=== PATIENT | female | born 1985 | race Caucasian/White ===

== ENCOUNTER → 2020-10-15 | Outpatient (CLI) | payer MEDICAID ==
--- NOTE | 2020-10-16 06:49 | US ---
EXAMINATION TYPE: US pelvis complete transvag DATE OF EXAM: 10/15/2020 COMPARISON: NONE CLINICAL HISTORY: N92.1 Mennorhagia irregular cycle. Irregular menses. Unable to go per pat ient. TECHNIQUE: Transvaginal (TV) and Transabdominal (TA) . Transabdominal sonographic images of the pel vis were acquired. Transvaginal sonographic images were medically necessary to better assess the fol lowing anatomy: Endometrium Date of LMP: 10/06/2020, G0 EXAM MEASUREMENTS: Uterus: 9.9 x 4.9 x 4.6 cm Endometrial Stripe: 1.9 cm Right Ovary: 3.1 x 2.2 x 2.1 cm Left Ovary: 2.8 x 2.2 x 2.0 cm 1. Uterus: Anteverted wnl 2. Endometrium: compacted with multiple echogenic foci with shadowing 3. Right Ovary: follicles seen 4. Left Ovary: follicles seen 5. Bilateral Adnexa: wnl 6. Posterior cul-de-sac: no free fluid IMPRESSION: Multiple echogenic foci with shadowing are noted within the endometrium which may reflect calcificati ons. Consider direct visualization.
== END | disposition home or self-care (01) ==
LOC: MERGE 16:20 → RADUSWWP 16:20
PROVIDERS: ATTEND Obstetrics & Gynecology
DX: N92.1 Excessive and frequent menstruation with irregular cycle (principal)
CPT/HCPCS: 76830; 76856

== ENCOUNTER → 2020-11-08 | Outpatient (CLI) | payer MEDICAID ==
[2020-11-08 13:50] LABS: Basophils # (A) 0.1 k/uL (0-0.2); Basophils % (A) 1 %; Eosinophils # (A) 0.3 k/uL (0-0.7); Eosinophils % (A) 5 %; HCT 43.4 % (34.0-46.0); HGB 13.7 gm/dL (11.4-16.0); Lymphocytes # (A) 1.8 k/uL (1.0-4.8); Lymphocytes % (A) 28 %; MCH 27.2 pg (25.0-35.0); MCHC 31.7 g/dL (31.0-37.0); MCV 85.8 fL (80.0-100.0); Mean Platelet Volume 8.2; Monocytes # (A) 0.4 k/uL (0-1.0); Monocytes % (A) 6 %; Neutrophils # (A) 3.7 k/uL (1.3-7.7); Neutrophils % (A) 57 %; Platelet Count 211 k/uL (150-450); RBC 5.06 m/uL (3.80-5.40); RDW 14.3 % (11.5-15.5); WBC 6.5 k/uL (3.8-10.6)
== END | disposition home or self-care (01) ==
LOC: LABPAT 13:16
PROVIDERS: ATTEND Obstetrics & Gynecology
DX: Z01.812 Encounter for preprocedural laboratory examination (principal)
CPT/HCPCS: 36415; 85025

== ENCOUNTER 2020-11-14 06:16 | Day surgery (SDC) | payer MEDICAID ==
[2020-11-12 13:18] VITALS: BMI 34.4
--- NOTE | 2020-11-13 21:03 | P.HPOB ---
History of Present Illness H&P Date: 11/13/20 Chief Complaint: Menorrhagia with regular cycle, endometrial thickening on US This is a 35 y.o. female, 0, who presents for dilatation and curettage with hysteroscopy due to menorrhagia with regular cycle and endometrial thickening on ultrasound. Her pelvic ultrasound showed uterus measuring 9.9 x 4.9 x 4.6 cm with endometrial thickness of 1.9 cm and multiple echogenic foci with shadowing within the endometrium. Normal follicles are seen on ovaries. Her menses are occurring every 28 days and lasting 7 days. They are heavy and painful and she occasionally has breakthrough bleeding. She has been trying to get since February. OB Hx: G0. Lead Applications Developer Hx: No hx STDs Social hx: . Works as RN at [employer]. Review of Systems Constitutional: Denies chills, Denies fever Eyes: denies blurred vision, denies pain Ears, nose, mouth and throat: Denies sore throat Cardiovascular: Denies chest pain, Denies shortness of breath Respiratory: Denies cough Gastrointestinal: Denies abdominal pain, Denies diarrhea, Denies nausea, Denies vomiting Genitourinary: Reports dysmenorrhea, Reports menorrhagia Menstruation: Reports period heavy Musculoskeletal: Reports myalgias Integumentary: Denies pruritus, Denies rash Neurological: Reports headaches (occ), Denies numbness, Denies weakness Psychiatric: Denies anxiety, Denies depression Past Medical History Additional Past Medical History / Comment(s): HEAVY MENSES WITH THICKENED UTERUS; Anemia History of Any Multi-Drug Resistant Organisms: None Reported Past Surgical History: Orthopedic Surgery Additional Past Surgical History / Comment(s): LT KNEE SURGERY Past Anesthesia/Blood Transfusion Reactions: Postoperative Nausea & Vomiting (PONV) Past Psychological History: No Psychological Hx Reported Smoking Status: Never smoker Past Alcohol Use History: None Reported Past Drug Use History: None Reported - Past Family History Mother Family Medical History: Diabetes Mellitus Medications and Allergies Home Medications Medication Instructions Recorded Confirmed Type Ferrous Sulfate [Iron] 325 mg PO DAILY 11/14/20 11/14/20 History Multivitamins, Thera [Multivitamin 1 tab PO DAILY 11/14/20 11/14/20 History (formulary)] Allergies Allergy/AdvReac Type Severity Reaction Status Date / Time No Known Allergies Allergy Verified 11/14/20 06:55 Exam Osteopathic Statement: *. No significant issues noted on an osteopathic structural exam other than those noted in the History and Physical/Consult. HEENT: within normal limits Heart: regular rate and rhythm Lungs: clear to auscultation bilaterally Abdomen: soft, non-tender Pelvic: uterus small, anteverted, non-tender with no adnexal masses or tenderness Extremities: neg. Obie's Assessment and Plan (1) Menorrhagia with regular cycle Current Visit: No Status: Acute Code(s): N92.0 - EXCESSIVE AND FREQUENT MENSTRUATION WITH REGULAR CYCLE SNOMED Code(s): 724457865 (2) Endometrial thickening on ultrasound Current Visit: No Status: Acute Code(s): R93.89 - ABNORMAL FINDINGS ON DX IMAGING OF OTH BODY STRUCTURES SNOMED Code(s): 858973237 Plan: Proceed with dilatation and curettage with hysteroscopy. I have discussed the risks, benefits, and alternative therapies for the above- mentioned procedure and for both sedation/anesthesia as well as necessary blood products administration, if indicated, as they pertain to this patient. The patient has indicated her understanding and acceptance of the risks and procedures discussed.
[~2020-11-14 06:16] MED LIST: DEXAMETHASONE SOD PHOSPHATE 4 MG/ML 1 ML VIAL IV ONE; LIDOCAINE 1% (10MG/ML) FOR IV START INTRADERMA PRN; MIDAZOLAM 2 MG/2 ML VIAL IV PRN; ONDANSETRON 4 MG/2 ML VIAL IVP ONE; Pre Op ABX Message 1 EACH MISC MISCELLANE ONE
[2020-11-14] MEDS ORDERED: HYDROmorphone 0.5 MG/0.5 ML SYRINGE IVP PRN (07:00)
[2020-11-14] MEDS: LACTATED RINGERS 1,000 ML IV SCH ×2 (07:08→07:28)
[2020-11-14] MEDS ORDERED: SCOPOLAMINE 1.5MG/72HR PATCH TRANSDERM ONE (07:20)
[2020-11-14] MEDS ORDERED: LIDOCAINE 1% INJ 10MG/ML (20 ML MDV) ONE (07:28)
[2020-11-14] MEDS ORDERED: fentaNYL (PF) 50 MCG/ML 2 ML AMP ONE (07:28)
[2020-11-14] MEDS ORDERED: MIDAZOLAM 2 MG/2 ML VIAL ONE (07:28)
[2020-11-14] MEDS ORDERED: PROPOFOL 10 MG/ML 20 ML VIAL IV ONE (07:28)
--- NOTE | 2020-11-14 08:01 | P.OP ---
Date of Procedure: 11/14/20 Preoperative Diagnosis: Endometrial thickening Menorrhagia with regular cycle Postoperative Diagnosis: Same Procedure(s) Performed: Dilation and curettage with hysteroscopy Anesthesia: other (LMA general) Surgeon: Laura Berumen Estimated Blood Loss (ml): 10 Pathology: other (Endometrial curettings) Condition: stable Disposition: floor Indications for Procedure: This is a 35 y.o. female, 0, who presents for dilatation and curettage with hysteroscopy due to menorrhagia with regular cycle and endometrial thickening on ultrasound. Her pelvic ultrasound showed uterus measuring 9.9 x 4.9 x 4.6 cm with endometrial thickness of 1.9 cm and multiple echogenic foci with shadowing within the endometrium. Normal follicles are seen on ovaries. Her menses are occurring every 28 days and lasting 7 days. They are heavy and painful and she occasionally has breakthrough bleeding. She has been trying to get since February. Operative Findings: Uterus is anteverted, slightly enlarged, with no adnexal masses palpated. A large amount of blood clot and some tissue was noted on curetting. A small firm piece of tissue was also removed on curetting that was consistent with a possible submucosal fibroid. Description of Procedure: The patient is taken to the operating room where she is placed in the dorsal lithotomy position. She is prepped and draped in the normal sterile fashion. Her bladder is drained with a catheter. Examination is performed under anesthesia. Uterus is found to be slightly bulky and anteverted, with no adnexal masses palpated. Next a weighted speculum was placed in the patient's vagina. A right angle retractor was used to visualize the cervix. The anterior lip of the cervix is grasped with a single-tooth tenaculum. Uterus is sounded to 10 cm. Cervix is gently dilated with Recinos dilators until a hysteroscope could be passed. Hysteroscopy was performed using normal saline. Due to her bleeding, no specific anatomy was visualized due to blood. Hysteroscope was withdrawn and then the cervix was gently dilated further. A polyp forceps was introduced with minimal tissue obtained. Next a medium-size sharp curet was introduced and curettage was performed until a gritty texture was noted. There was a palpable abnormality on the anterior wall consistent with possible submucosal fibroid. There was a small piece of tissue that is firm consistent with submucosal fibroid was removed upon curetting. Otherwise relatively smooth contour was noted. Next the single-tooth tenaculum was removed and no bleeding was noted. All other incisions are removed from the vagina. Sponge counts are correct. The patient is then taken to recovery room in stable condition. Tissue will be sent to pathology.
[2020-11-14 08:18] VITALS: TEMP 97.2
[2020-11-14 08:44] VITALS: RESP 18
[2020-11-14 09:00] VITALS: BP 117/71; PULSE 87
== END 2020-11-14 09:16 | disposition home or self-care (01) ==
LOC: OR 06:16
PROVIDERS: ATTEND Obstetrics & Gynecology
DX: N92.0 Excessive and frequent menstruation with regular cycle (principal); R93.89 Abnormal findings on diagnostic imaging of other specified body structures; D64.9 Anemia, unspecified; Z83.3 Family history of diabetes mellitus; Z98.890 Other specified postprocedural states
CPT/HCPCS: 81025; 88305; 58558; J2250; J1100; J2405; J2001; J3010; J2704

== ENCOUNTER → 2021-06-05 | Outpatient (CLI) | payer MEDICAID ==
[2021-06-05 15:18] LABS: Hepatitis B Surface Antigen Nonreactive (Nonreactive); Hepatitis C IgG Antibody Nonreactive (Nonreactive)
[2021-06-05 16:37] LABS: Prolactin 14.5 ng/mL (2.800-29.200)
[2021-06-05 21:01] LABS: HIV 2 AB Non-Reactive (Non-Reactive); HIV AB P24 Non-Reactive (Non-Reactive); HIV P24 AG Non-Reactive (Non-Reactive)
== END | disposition home or self-care (01) ==
LOC: LABWHC1 07:45
PROVIDERS: ATTEND Obstetrics & Gynecology Reproductive Endocrinology
DX: Z01.812 Encounter for preprocedural laboratory examination (principal)
CPT/HCPCS: 36415; 82306; 82397; 83036; 84146; 84443; 86592; 86704; 86762; 86787; 86803; 86850; 86900; 86901; 87340; 87390

== ENCOUNTER → 2021-07-01 | Outpatient (CLI) | payer MEDICAID ==
[2021-07-01 14:47] LABS: Follicle Stimulating Hormone 2.4 mIU/mL; HCG,Quantitative Serum <3.0 (0.0-6.0); Luteinizing Hormone 5.7 mIU/mL
== END | disposition home or self-care (01) ==
LOC: LABWHC1 07:31
PROVIDERS: ATTEND Obstetrics & Gynecology Reproductive Endocrinology
DX: Z31.69 Encounter for other general counseling and advice on procreation (principal); N92.6 Irregular menstruation, unspecified
CPT/HCPCS: 36415; 82670; 83001; 83002; 84144; 84702

== ENCOUNTER → 2021-12-30 | Outpatient (CLI) | payer MEDICAID ==
--- NOTE | 2021-12-30 09:45 | US ---
EXAMINATION TYPE: US pelvis complete transvag DATE OF EXAM: 12/30/2021 COMPARISON: US 10/15/2020. CLINICAL HISTORY: D21.9 Fibroids. Pt going through infertility testing TECHNIQUE: Transvaginal (TV) and Transabdominal (TA) . Transabdominal sonographic images of the pel vis were acquired. Transvaginal sonographic images were medically necessary to better assess the fol lowing anatomy: Entire pelvis, bladder not fully distended Date of LMP: 3-4 weeks ago EXAM MEASUREMENTS: Uterus: 8.0 x 4.4 x 6.9 cm Endometrial Stripe: 0.6 cm Right Ovary: 3.7 x 3.5 x 2.2 cm Left Ovary: 2.9 x 2.8 x 2.0 cm 1. Uterus: Anteverted Heterogeneous 2. Endometrium: Large calcification within endometrial canal redemonstrated = 3.2 x 2.1 x 3.3 cm/ si milar findings when compared to prior exam. 3. Right Ovary: wnl, follicles 4. Left Ovary: wnl, follicles 5. Bilateral Adnexa: wnl 6. Posterior cul-de-sac: wnl IMPRESSION: No significant change of multiple echogenic foci with shadowing within the endometrium wh ich may reflect calcifications from fibroid changes. Consider direct visualization.
== END | disposition home or self-care (01) ==
LOC: RADUSWWP 07:40
PROVIDERS: ATTEND Obstetrics & Gynecology
DX: D21.9 Benign neoplasm of connective and other soft tissue, unspecified (principal)
CPT/HCPCS: 76830; 76856

== ENCOUNTER → 2022-05-08 | Outpatient (CLI) | payer MEDICAID | END | disposition home or self-care (01) | LOC: LABWHC1 07:06 | PROVIDERS: ATTEND Obstetrics & Gynecology Reproductive Endocrinology | DX: Z01.812 Encounter for preprocedural laboratory examination (principal); N85.8 Other specified noninflammatory disorders of uterus | CPT/HCPCS: 86850; 86900; 86901 ==

== ENCOUNTER → 2022-10-12 | Outpatient (CLI) | payer MEDICAID ==
[2022-10-12 15:55] LABS: Thyroid Peroxidase Antibodies <9.0 U/mL (0.0-33.0)
[2022-10-12 18:38] LABS: Cardiolipin Ab IgG Interp Negative (Negative); Cardiolipin Ab IgM Interp Negative (Negative); Cardiolipin IgM Antibody 1.5 U/mL
[2022-10-13 11:35] LABS: APTT 36 Sec(s) (<43); Dilute Russell Viper Venom 38 Sec(s) (<44)
== END | disposition home or self-care (01) ==
LOC: LABWHC1 10:07
PROVIDERS: ATTEND Obstetrics & Gynecology Reproductive Endocrinology
DX: E28.9 Ovarian dysfunction, unspecified (principal)
CPT/HCPCS: 36415; 84443; 85613; 85730; 86147; 86376